=== PATIENT | male | born 1980 | race Caucasian/White ===

== ENCOUNTER 2020-12-01 03:01 | Observation (INO) ==
[2020-12-01 03:44] LABS: Bilirubin,Urine Negative (Negative); Blood,Urine Negative (Negative); Clarity,Urine Clear (Clear); Color,Urine Yellow (Yellow); Glucose,Urine (UA) Normal (Normal); Ketones,Urine Negative (Negative); Leukocyte Esterase,Urine Negative (Negative); Nitrite,Urine Negative (Negative); PH,Urine 5.5 pH Units (5.0-8.0); Protein,Urine Trace mg/dL (Neg-Trace); Specific Gravity,Urine 1.021 (1.010-1.025); Urobilinogen,Urine Normal (Normal)
[2020-12-01 03:44] LABS: Basophils # 0.1 K/mcL (0.0-0.2); Basophils % 0.9 %; Eosinophils # 0.2 K/mcL (0.0-0.6); Hematocrit 45.5 % (37.5-50.1); Hemoglobin 14.5 g/dL (12.9-16.9); Immature Granulocytes % 0.4 % (0-4); Lymphocytes # 2.7 K/mcL (0.6-4.6); Mean Corpuscular HGB Conc 31.9 g/dL (31.6-35.5); Mean Corpuscular Hemoglobin 26.1 pg (28.0-33.3); Mean Platelet Volume 9.5 fL (9.4-12.4); Monocytes # 0.6 K/mcL (0.0-1.3); Monocytes % 7.3 %; Neutrophils # 4.8 K/mcL (1.6-8.9); Platelet Count 228 K/mcL (140-400); Red Blood Count 5.55 M/mcL (4.19-5.50); Red Cell Distribution Width 14.5 % (11.5-14.5); Segmented Neutrophils % 57.4 %; White Blood Count 8.4 K/mcL (4.3-11.1)
[2020-12-01 03:56] LABS: Amphetamine Screen,Urine Negative ng/mL (Cutoff=1000); Barbiturate Screen,Urine Negative ng/mL (Cutoff=200); Benzodiazepines Screen,Urine Positive ng/mL (Cutoff=200); Cannabinoid Screen,Urine Positive ng/mL (Cutoff = 50); Cocaine Screen,Urine Negative ng/mL (Cutoff= 300); Opiate Screen,Urine Positive ng/mL (Cutoff=300); Phencyclidine Screen,Urine Negative ng/mL (Cutoff=25)
[2020-12-01 04:06] LABS: Acetaminophen < 10 mcg/mL (10-20); BUN/Creatinine Ratio 9 (6-26); Blood Urea Nitrogen 8 mg/dL (6-20); Calcium 9.6 mg/dL (8.6-10.3); Carbon Dioxide 24 mEq/L (23-29); Chloride 106 mEq/L (98-107); Chol/HDL Ratio 6.3 (0-4.9); Cholesterol 251 mg/dL (< 200); Ethanol < 10 mg/dL (Less than 10); Glucose 106 mg/dL (70-105); HDL Cholesterol 40 mg/dL (40-59); LDL Cholesterol,Calculated 176 mg/dL (< 100); Osmolality,Calculated 291 (280-300); Potassium 3.4 mEq/L (3.5-5.1); Salicylate < 2.5 mg/dL (15.0-30.0); Sodium 141 mEq/L (136-145); Triglycerides 176 mg/dL (< 150); eGFR For African Americans > 60 (> 60); eGFR For Non-African Americans > 60 (> 60)
[2020-12-01 07:31] LABS: Estimated Average Glucose 117 mg/dl; Hemoglobin A1C 5.7 %
[2020-12-01] MEDS ORDERED: *HR* LORazepam 2 MG/ML VIAL IM PRN (10:08)
[2020-12-01] MEDS ORDERED: Ibuprofen 400 MG TABLET PO PRN (10:08)
[2020-12-01] MEDS ORDERED: Mag Hydrox/Al Hydrox/Simeth 30 ML UDC PO PRN (10:08)
[2020-12-01] MEDS ORDERED: Acetaminophen 325 MG TABLET PO PRN (10:08)
[2020-12-01] MEDS ORDERED: traZODone 50 MG TABLET PO PRN (10:08)
[2020-12-01] MEDS ORDERED: *HR* LORazepam 1 MG TABLET PO PRN (10:08)
[2020-12-01] MEDS ORDERED: MOM Conc 10 ML UD.LIQ PO PRN (10:08)
[2020-12-01] MEDS ORDERED: Nicotine 2 MG GUM BC PRN (10:08)
[2020-12-01] MEDS ORDERED: Haloperidol Lactate 5 MG/ML VIAL IM PRN (10:08)
[2020-12-01] MEDS ORDERED: haloperidoL 5 MG TABLET PO PRN (10:08)
[2020-12-01] MEDS: Nicotine 21 MG PATCH.TD24 TD SCH (14:35)
[2020-12-01] MEDS: hydrOXYzine pamoate 25 MG CAPSULE PO PRN (18:15)
[2020-12-02] MEDS: Nicotine 21 MG PATCH.TD24 TD SCH (11:02)
[2020-12-02] MEDS: hydrOXYzine pamoate 25 MG CAPSULE PO PRN (14:01)
[2020-12-03] MEDS: Nicotine 21 MG PATCH.TD24 TD SCH (08:46)
[2020-12-03 08:58] VITALS: BP 137/93
== END 2020-12-03 18:10 | disposition home or self-care (01) ==
LOC: 1ANU 03:01 → EMEROOARM 03:01 → 1ANU 11:23
PROVIDERS: ADMIT Psychiatry & Neurology Forensic Psychiatry; ATTEND Psychiatry & Neurology Forensic Psychiatry